=== PATIENT | male | born 1980 | race Caucasian/White ===

== ENCOUNTER 2018-05-28 11:16 | Outpatient (CLI) | payer OTHER | END 2018-05-28 11:17 | disposition home or self-care (01) | LOC: SC 11:16 | PROVIDERS: ATTEND Internal Medicine Pulmonary Disease | DX: R06.83 Snoring (principal); G47.10 Hypersomnia, unspecified; R06.81 Apnea, not elsewhere classified; G47.8 Other sleep disorders; R41.89 Other symptoms and signs involving cognitive functions and awareness | CPT/HCPCS: 99203; 99212 ==

== ENCOUNTER 2018-06-18 20:24 | Outpatient (CLI) | payer OTHER | END 2018-06-18 20:25 | disposition home or self-care (01) | LOC: SC 20:24 | PROVIDERS: ATTEND Internal Medicine Pulmonary Disease | DX: R06.83 Snoring (principal); R06.81 Apnea, not elsewhere classified; G47.10 Hypersomnia, unspecified | CPT/HCPCS: 95810 ==

== ENCOUNTER 2018-07-24 09:19 | Outpatient (CLI) | payer OTHER | END 2018-07-24 09:20 | disposition home or self-care (01) | LOC: SC 09:19 | PROVIDERS: ATTEND Nurse Practitioner Family | DX: R06.83 Snoring (principal) | CPT/HCPCS: 99212; 99214 ==

== ENCOUNTER 2018-10-01 10:13 | Outpatient (CLI) | payer OTHER | END 2018-10-01 10:14 | disposition home or self-care (01) | LOC: SC 10:13 | PROVIDERS: ATTEND Nurse Practitioner Family | DX: R06.83 Snoring (principal) | CPT/HCPCS: 99212; 99214 ==

== ENCOUNTER 2018-10-15 19:42 | Outpatient (CLI) | payer OTHER | END 2018-10-15 19:43 | disposition home or self-care (01) | LOC: SC 19:42 | PROVIDERS: ATTEND Internal Medicine Pulmonary Disease | DX: G47.33 Obstructive sleep apnea (adult) (pediatric) (principal) | CPT/HCPCS: 95810 ==

== ENCOUNTER 2018-10-21 16:15 | Outpatient (CLI) | payer OTHER ==
--- NOTE | 2018-10-21 17:29 | SLEEP CARE CONSULTATION ---
Information from patient questionnaire entered by Teresa Carmona. I have reviewed and concur with the information entered by Teresa Carmona. This document represents the service I personally performed and the decisions made by me, Ashley Marmolejo RN, MSN, SEE WHEELER. History of Present Illness Accompanied by: two young sons Initial [place] Sleepiness Scale score: 10 Current [place] Sleepiness Scale score: 14 Additional HPI information: CROW PARHAM returns with his two sons for follow up of the recently performed polysomnography. The patient was informed of the following polysomnography findings: I explained the pathophysiology behind obstructive sleep apnea. We then spent quite a bit of time discussing different treatment options. For mild obstructive sleep apnea, surgery and oral appliance are alternatives to nasal CPAP therapy but in moderate or severe cases, nasal CPAP is the most effective and reliable treatment. Because apnea is primarily in supine position, then positional management therapy could be effective. Methods discussed such as positioning with pillows, using a T-shirt with tennis balls in the back, and shown commercial products that have a pillow format on back to prevent supine sleep. I reviewed the impact of weight changes on sleep apnea and strongly recommended losing weight. After some discussion, the patient opted to go with the nasal CPAP therapy. He tried positional therapy but did not tolerate and continued with sleepiness symptoms. Nasal autoCPAP set at [id number] will be ordered with rationale explained. A manual titration study will be ordered if unable to find optimal pressure with office adjustments. I explained how CPAP machine works with sample devices Respironics Dreamstation and ResMed [id number] and what to expect when using the machine. Using CPAP every night in order to get used to it was emphasized. Patient advised to put CPAP mask on before getting into bed so as not to fall asleep without CPAP. To assist acclimation to CPAP use, it could also be used for a short time during day while reading or watching TV. The patient was instructed to call the CPAP supplier to discuss any mechanical problem that may occur. If the mask given is uncomfortable or is difficult to keep on through the night even with adjustment, contact the CPAP supplier as many will replace with another mask style if notified before 30 days. If snoring or perceives is not getting enough air or too much air from the machine, notify this office. [facility] patient education PAP tips reviewed and given to patient. Patient counseled not drink alcohol less than 4 hours before bedtime as it can increase snoring and apnea. Patient was cautioned about risks of drowsy driving until sleepiness symptoms resolve. Patient denies drowsy driving. [facility] patient education on snoring and sleep apnea given in past visit. Sleep Study - Polysomnography Polysomnography findings: The quality of the study is good. The patient had normal sleep efficiency. The sleep architecture was normal as well. Respiratory monitoring showed mild obstructive sleep apnea- hypopnea (AHI = 9.8) associated with frequent oxyhemoglobin desaturation and moderate hypoxia (m[place] oxygen saturation of 79%) but not sleep fragmentation. The respiratory events occurred mainly during supine sleep (supine AHI = 11.1; non-supine = 5.94). Snore was moderate to loud in intensity. There was no significant periodic leg movement of sleep . Cardiac rhythm was normal sinus rhythm without significant arrhythmia. No abnormal behavior (parasomnia) observed during the night. Allergies and Home Medications Known drug allergies: No Home medication list reviewed: Yes Allergy and home medication list: Medication Name (generic/name brand) Strength & Dosage Motrin PRN Melatonin 3mg PRN shifting Review of Systems Review of systems same as previous: Yes Gastrointestinal: reports: heartburn Ear/Nose/Throat: reports: wisdom teeth removed Endocrine: reports: sluggishness Musculoskeletal: reports: joint pain, neck pain, back pain Physical Exam Blood Pressure: 120/70 Cuff size: long Heart Rate: 73 O2 Saturation: 98 Height: 5 ft 11 in Weight (kg): 109.679 kg Body Mass Index: 33.7 BMI Classification: Class 1 Impression and Plan 1. Obstructive Sleep Apnea-Hypopnea Syndrome, mild, with lowest oxygen saturation of 79%. Probably this is the cause of the patients symptoms of unrefreshed sleep, and excessive daytime sleepiness. Positive pressure therapy could benefit his gerd. As mentioned above, the patient will be started on nasal autoCPAP therapy with pressure set at 4-15 cmH2O. A manual titration study will be completed if unable to find optimal treatment pressure with office adjustments. Compliance guidelines also reviewed. A copy of compliance guideli tamar will be given for reference at check out. Because the apnea is more severe supine, I instructed patient to avoid sleeping supine using pillow positioning until able to start CPAP use. * Nasal auto CPAP therapy, pressure at 4-15 cm H2O. * Attempt to lose weight. * Avoid alcohol consumption near bedtime. * Avoid supine sleep until using CPAP. * The patient is again cautioned about driving until sleepiness completely resolves. * Return one month after CPAP obtained. I will assess response to therapy and compliance at that time. I spent 100% of this 37 minute visit face to face with the patient with greater than 50% of this was spent time counseling the patient and coordination of care.
[2018-10-21 17:30] VITALS: BP 120/70
== END 2018-10-21 16:16 | disposition home or self-care (01) ==
LOC: SC 16:15
PROVIDERS: ATTEND Nurse Practitioner Family
DX: G47.33 Obstructive sleep apnea (adult) (pediatric) (principal)
CPT/HCPCS: 99212; 99214

== ENCOUNTER 2019-02-20 13:51 | Outpatient (CLI) | payer OTHER ==
[2019-02-20 14:58] VITALS: BP 112/76
--- NOTE | 2019-02-20 14:58 | SLEEP CARE CONSULTATION ---
Information from patient questionnaire entered by Ivette Ivey. I have reviewed and concur with the information entered by Ivette Ivey. This document represents the service I personally performed and the decisions made by me, Ashley Marmolejo, RN, MSN, MOTORCYCLE TECHNICIAN. History of Present Illness Previous diagnosis: Mild, Obstructive Sleep Apnea-Hypopnea Syndrome AHI: 9.8 Reason for follow up: first compliance Equipment type: CPAP Equipment obtained from: [email or web address] Mask style: Nasal Mask brand: Resmed (N20) Backup mask available: No (keep current mask as spare when replaced) Last cushion change: today CPAP Compliance Data - Data Reviewed with Patient Average duration of nightly device use: 7.5 Compliance rate %: 93.3 Current pressure setting (cmH2O): 4-15 Humidity settin Heated hose settin Average residual AHI: 2.0 Average large leak: 2 min 21 sec Subjective Missed days of use due to: reports: travel Patient concerns: reports: condensation in mask/hose (initially but none now since reduced humidity ). denies: aerophagia, mask discomfort, air blowing in eyes, mask leak noise, nasal congestion, dry mouth, nose, throat, epistaxis Observed to snore while using device: Yes (rare) Current pressure setting perceived as: comfortable On therapy, patient: reports: sleeping better, awakening more refreshed, being more awake and alert during the day, more rested overall. denies: drowsiness while driving Initial [place] Sleepiness Scale score: 10 Current [place] Sleepiness Scale score: 2 Allergies and Home Medications Known drug allergies: No Home medication list reviewed: No (none) Review of Systems Review of systems same as previous: Yes Physical Exam Blood Pressure: 112/76 Cuff size: long Heart Rate: 63 O2 Saturation: 98 Height: 5 ft 11 in Weight: 240 lb Body Mass Index: 33.5 BMI Classification: Obesity Class 1 Impression and Plan 1. Obstructive Sleep Apnea-Hypopnea Syndrome, mild, with good treatment compliance and good apnea control. On CPAP therapy, the patient has better sleep quality and is more rested overall. To reduce air hunger at lower pressures and snore , I will adjust his autoCPAP pressure to [id number] as his mean pressure of 7cmH20. He is advised to contact this office if pressure change is uncomfortable. He can use the ramp at initiation if needed as shown on sample CPAP. Since he is planning on losing some weight ( 15 pounds) I discussed how his apnea severity and CPAP pressure requirements may reduce. His current autoCPAP pressure should accomodate some weight loss. Symptoms to report for further CPAP pressure adjustment discussed. I will also order a heated hose as he has condensation at higher humidity settings and likes to sleep in a cool room. Patient's apnea severity and rationale for treatment to reduce apnea, improve sleep quality and reduce cardiovascular and cerebrovascular events was reviewed. * * Change CPAP pressure to 7-10 cmH2O * heated hose * Notify me if snoring with mask or feeling that the pressure is too much or too little * Attempt to lose weight * Return for follow up in 3 months , or sooner if concerns arise I spent 100% of this 25 minute visit face to face with the patient with greater than 50% of this was spent time counseling the patient and coordination of care.
== END 2019-02-20 13:52 | disposition home or self-care (01) ==
LOC: SC 13:51
PROVIDERS: ATTEND Nurse Practitioner Family
DX: G47.33 Obstructive sleep apnea (adult) (pediatric) (principal); E66.9 Obesity, unspecified; Z68.33 Body mass index [BMI] 33.0-33.9, adult
CPT/HCPCS: 99212; 99214

== ENCOUNTER 2019-11-14 10:24 | Outpatient (CLI) | payer OTHER ==
--- NOTE | 2019-11-14 10:55 | SLEEP CARE CONSULTATION ---
Information from patient questionnaire entered by Ivette Ivey. I have reviewed and concur with the information entered by Ivette Ivey. This document represents the service I personally performed and the decisions made by , No Knox ARNP. History of Present Illness Service Date and Time: 11/14/2019 1024 Previous diagnosis: Mild, Obstructive Sleep Apnea-Hypopnea Syndrome AHI: 9.8 (in 2019) Reason for follow up: other (9 month ) Equipment type: CPAP Equipment obtained from: [employer] (getting supplies as needed) Mask style: Nasal (over nose, not Wisp) Backup mask available: Yes (old mask) Last cushion change: last week [facility]: [facility] Type of Sleep Study: Polysomnography HPI additional information: CROW PARHAM was diagnosed to have mild, AHI 9.8, obstructive sleep apnea- hypopnea syndrome and returned today for CPAP therapy nine month follow-up. He last follow up in March but due to Covid pandemic was unable to follow up in May. He has been using his CPAP as instructed and feels he is "getting good at it". CPAP Compliance Data - Data Reviewed with Patient Average duration of nightly device use: 7.2 Compliance rate %: 93.3 (180 days) Current pressure setting (cmH2O): 4-15 Humidity settin Heated hose settin Average residual AHI: 1.3 Average large leak: 1 min 16 sec Subjective Patient concerns: denies: aerophagia, mask discomfort, air blowing in eyes, mask leak noise, condensation in mask/hose, nasal congestion, dry mouth, nose, throat, epistaxis, other Observed to snore while using device: No Current pressure setting perceived as: comfortable On therapy, patient: reports: sleeping better, awakening more refreshed, being more awake and alert during the day, more rested overall. denies: drowsiness while driving Initial [place] Sleepiness Scale score: 10 (in 2019) Current [place] Sleepiness Scale score: 3 Allergies and Home Medications Drug allergies reviewed: Yes (NKDA) Home medication list reviewed: Yes (no changes) Review of Systems Review of systems same as previous: Yes (no changes) Physical Exam Heart Rate: 81 O2 Saturation: 98 Height: 5 ft 11 in Weight: 252 lb Body Mass Index: 35.1 BMI Classification: Obese Impression and Plan 1. Obstructive Sleep Apnea-Hypopnea Syndrome, mild, with good treatment compliance and good apnea control with an average residual AHI of 1.3. On CPAP therapy, the patient has better sleep quality and is more rested overall. He is feeling really comfortable with using the CPAP and has only not used it on overnight or few day camping trips. Patient's apnea severity and rationale for treatment to reduce apnea, improve sleep quality and reduce cardiovascular and cerebrovascular events was reviewed. * Changeauto CPAP pressure to 8-12 cmH2O * Notify me if snoring with mask or feeling that the pressure is too much or too little * Attempt to lose weight * Call this office if any problems using CPAP * Return for follow up in 1 year, or sooner if concerns arise Visit Type: In Office Time Spent with Patient (minutes): 20 Provider Statement: I spent 100% of the Face to Face Visit with the patient with greater than 50% spent counseling the patient and coordination of care.
== END 2019-11-14 10:25 | disposition home or self-care (01) ==
LOC: SC 10:24
PROVIDERS: ATTEND Nurse Practitioner Family
DX: G47.33 Obstructive sleep apnea (adult) (pediatric) (principal); E66.9 Obesity, unspecified; Z68.35 Body mass index [BMI] 35.0-35.9, adult
CPT/HCPCS: 99212; 99213

== ENCOUNTER 2023-01-09 07:17 | Outpatient (CLI) | payer OTHER ==
--- NOTE | 2023-01-09 10:05 | MRI Report ---
PROCEDURE: SHOULDER WO - RT INDICATIONS: SHOULDER PAIN TECHNIQUE: Noncontrast oblique coronal T2 fast spin echo with fat saturation, oblique sagittal T1 spin echo and T2 fast spin echo with fat saturation, axial T1 spin echo and T2 fast spin echo with fat saturation t hrough the shoulder. COMPARISON: None. FINDINGS: Image quality: Excellent. Rotator cuff: Low to moderate grade articular and bursal surface partial-thickness tear involving dis randy supraspinatus at its insertion on humeral head is seen extending to musculotendinous junction. [place] full-thickness perforation involving most anterior fibers of distal supraspinatus at its insertio n on humeral head is noted with up to 5 mm medial retraction of torn tendon fibers. Distal infraspina tus tendinosis is seen. Subscapularis tendinosis is also noted. No rotator cuff muscle atrophy on sag ittal images. Bones and bursae: No bone marrow contusions or fractures. Moderate acromioclavicular joint osteoarth ritic changes are seen with joint space narrowing and downward osteophyte formation depressing on mus culotendinous junction of supraspinatus. The acromion demonstrates conventional anatomy, without an o s acromiale. Small amount of subacromial subdeltoid bursal fluid is seen, no gross loose bodies. Capsule and soft tissues: There is signal abnormality and fraying of superior anterior labrum at 12 t o 2:00 position ingestive of superior anterior labral tear. The long head of the biceps tendon demons trates normal location and morphology. The rotator interval appears normal, without fibrosis. The c oracohumeral ligament is normal in thickness. IMPRESSION: 1. Low to moderate grade articular and bursal surface partial-thickness tear extending to musculotend inous junction with focal full-thickness perforation involving most anterior fibers of distal suprasp inatus at its insertion on humeral head and up to 5 mm medial retraction of torn tendon fibers. Dista l infraspinatus and subscapularis tendinosis. No significant rotator cuff muscle atrophy. 2. Moderate acromioclavicular joint. No fracture or dislocation. Small amount of subacromial subdelto id bursal fluid, no loose bodies. 3. Suggestion of superior anterior labral tear at 12 to 2:00 position. Reviewed by: Hebert Ceballos MD on 01/09/2023 10:04 AM PDT Approved by: Hebert Ceballos MD on 01/09/2023 10:04 AM PDT Station ID: [id number]
--- NOTE | 2023-01-09 12:43 | MRI Report ---
PROCEDURE: SHOULDER WO - LT INDICATIONS: SHOULDER PAIN TECHNIQUE: Noncontrast oblique coronal T2 fast spin echo with fat saturation, oblique sagittal T1 spin echo and T2 fast spin echo with fat saturation, axial T1 spin echo and T2 fast spin echo with fat saturation t hrough the shoulder. COMPARISON: None. FINDINGS: Image quality: Excellent. Rotator cuff: Low-grade articular and bursal surface partial-thickness tear involving distal supraspi natus at its insertion on humeral head is seen extending to musculotendinous junction. Low-grade darrius cular surface partial-thickness tear involving distal subscapularis at its insertion on humeral head is also noted. The subscapularis tendon is intact. No full-thickness rotator cuff tendon rupture. No rotator cuff muscle atrophy on sagittal images. Bones and bursae: No bone marrow contusions or fractures. Mild to moderate acromioclavicular joint o steoarthritic changes are seen with joint space narrowing and downward osteophyte formation depressin g on musculotendinous junction of supraspinatus. The acromion demonstrates conventional anatomy, with out an os acromiale. No pathologic subacromial/subdeltoid bursal fluid is present. Capsule and soft tissues: There is subtle signal abnormality and fraying of superior anterior labrum at 12 to 1:00 position suggestive of subtle superior anterior labral tear. The long head of the bicep s tendon demonstrates normal location and morphology. The rotator interval appears normal, without f ibrosis. The coracohumeral ligament is normal in thickness. IMPRESSION: 1. Low-grade articular and bursal surface partial-thickness tear involving distal supraspinatus exten ding to musculotendinous junction. Low-grade articular surface partial-thickness tear at its insertio n on humeral head. No full-thickness rotator cuff tendon rupture. 2. Mild to moderate acromioclavicular joint osteoarthritis. No fracture or dislocation. No significan t joint effusion or subacromial subdeltoid bursal fluid. 3. Finding is concerning for subtle superior anterior labral tear at 12 to 1:00 position. Reviewed by: Hebert Ceballos MD on 01/09/2023 12:41 PM PDT Approved by: Hebert Ceballos MD on 01/09/2023 12:41 PM PDT Station ID: [id number]
== END 2023-01-09 07:18 | disposition home or self-care (01) ==
LOC: DI 07:17
PROVIDERS: ATTEND Family Medicine
DX: M75.111 Incomplete rotator cuff tear or rupture of right shoulder, not specified as traumatic (principal); M19.011 Primary osteoarthritis, right shoulder; M25.411 Effusion, right shoulder; M75.112 Incomplete rotator cuff tear or rupture of left shoulder, not specified as traumatic; M19.012 Primary osteoarthritis, left shoulder